=== PATIENT | male | born 1990 | race Caucasian/White ===

== ENCOUNTER 2017-08-25 18:38 | Emergency (ER) | payer MEDICAID, OTHER ==
[2017-08-25 19:22] VITALS: BP 156/101; PULSE 88; RESP 16; TEMP 98.1; O2SAT 97
[2017-08-25] MEDS ORDERED: TDAP ADULT 0.5 ML INJ (BOOSTRIX) IM ONE (20:04)
--- NOTE | 2017-08-25 20:38 | EDPHY ---
H & P Stated Complaint: R hand dog bite at 1740 Time Seen by Provider: 08/25/17 20:32 HPI/ROS: CHIEF COMPLAINT: Dog bite HISTORY OF PRESENT ILLNESS: The patient is a 27-year-old man comes to the emergency department with his mom complaining of a dog bite to his right hand. He has small abrasions to the right index finger in 3 places. No obvious puncture wounds. No torn flashing no visible joint or tendon involvement. Normal range of motion and sensation. He did not think that it broke the skin until about 5 minutes later when he looks at his hand. REVIEW OF SYSTEMS: Constitutional: denies: chills, fever, recent illness, recent injury EENTM: denies: blurred vision, double vision, nose congestion Respiratory: denies: cough, shortness of breath Cardiac: denies: chest pain, irregular heart rate, lightheadedness, palpitations Gastrointestinal/Abdominal: denies: abdominal pain, diarrhea, nausea, vomiting, blood streaked stools Genitourinary: denies: dysuria, frequency, hematuria, pain Musculoskeletal: denies: joint pain, muscle pain Skin: See HPI Neurological: denies: headache, numbness, paresthesia, tingling, dizziness, weakness Hematologic/Lymphatic: denies: blood clots, easy bleeding, easy bruising Immunologic/allergic: denies: HIV/AIDS, transplant EXAM: GENERAL: Well-appearing, well-nourished and in no acute distress. HEAD: Atraumatic, normocephalic. EYES: Pupils equal round and reactive to light, extraocular movements intact, sclera anicteric, conjunctiva are normal. ENT: TMs normal, nares patent, oropharynx clear without exudates. Moist mucous membranes. NECK: Normal range of motion, supple without lymphadenopathy or JVD. LUNGS: Breath sounds clear to auscultation bilaterally and equal. No wheezes rales or rhonchi. HEART: Regular rate and rhythm without murmurs, rubs or gallops. ABDOMEN: Soft, nontender, normoactive bowel sounds. No guarding, no rebound. No masses appreciated. BACK: No CVA tenderness, no spinal tenderness, step-offs or deformities EXTREMITIES: Normal range of motion, no pitting or edema. No clubbing or cyanosis. NEUROLOGICAL: Cranial nerves II through XII grossly intact. Normal speech, normal gait. 03/12 strength, normal movement in all extremities, normal sensation PSYCH: Normal mood, normal affect. SKIN: Dog bites as described above. No suturable laceration no visible joint or tendon injury. Source: Patient Exam Limitations: No limitations - Personal History Current Tetanus/Diphtheria Vaccine: No Current Tetanus Diphtheria and Acellular Pertussis (TDAP): No - Medical/Surgical History Hx Asthma: Yes Hx Chronic Respiratory Disease: No Hx Diabetes: No Hx Cardiac Disease: No Hx Renal Disease: No Hx Cirrhosis: No Hx Alcoholism: No Hx HIV/AIDS: No Hx Splenectomy or Spleen Trauma: No Other PMH: celiac, lymes disease, - Family History Significant Family History: No pertinent family hx - Social History Smoking Status: Current every day smoker Alcohol Use: Sober Drug Use: None Constitutional: Initial Vital Signs Temperature (C) 36.7 C 08/25/17 19:19 Heart Rate 88 08/25/17 19:19 Respiratory Rate 16 08/25/17 19:19 Blood Pressure 156/101 H 08/25/17 19:19 O2 Sat (%) 97 08/25/17 19:19 O2 Delivery Mode Room Air Allergies/Adverse Reactions: No Known Allergies Allergy (Unverified 08/25/17 19:22) Home Medications: Medication Instructions Recorded Amoxicillin/Clavulanate Pot 875 mg PO BID #14 tab 08/25/17 [Augmentin 875Mg] FLUoxetine 08/25/17 LAMOTRIGINE 08/25/17 Valium 08/25/17 Medical Decision Making ED Course/Re-evaluation: I initially recommended Augmentin however the patient and mom were concerned about his micro biob profile because he has chronic Lyme disease. Eventually we agreed to give him a prescription but he will hold off taking it for 24 hours to see if any symptoms of infection develop. These are not deep wounds. He is aggressively irrigated the wounds himself and cleaned them with alcohol. We will wrapped them with antibiotics and sterile dressings. Patient and mom are happy with this plan and declines further workup or testing at this time. He did receive a tetanus shot and police have been notified. Differential Diagnosis: Partial list of the Differential diagnosis considered include but were not limited to; dog bite laceration, puncture wound and although unlikely based on the history and physical exam, I also considered tendon injury, foreign body, and fracture, joint infection. I discussed these differential diagnoses and the plan with the patient as well as the usual and expected course. The patient understands that the diagnosis is provisional and that in medicine we are not always correct and that further workup is often warranted. Usual and customary warnings were given. All of the patient's questions were answered. The patient was instructed to return to the emergency department should the symptoms at all worsen or return, otherwise to followup with the physician as we discussed. - Data Points Medications Given: Discontinued Medications Diphtheria/Tetanus/Acell Pertussis (Boostrix) 0.5 ml IM .ONCE ONE Stop: 08/25/17 20:05 Last Admin: 08/25/17 20:08 Dose: 0.5 ml Departure - Departure Disposition: Home, Routine, Self-Care Clinical Impression: Dog bite of right hand Qualifiers: Encounter type: initial encounter Qualified Code(s): S61.451A - Open bite of right hand, initial encounter; W54.0XXA - Bitten by dog, initial encounter; W54.0XXA - Bitten by dog, initial encounter Condition: Fair Instructions: Animal Bite (ED) Referrals: NONE *PRIMARY CARE P,. [Primary Care Provider] - As per Instructions Prescriptions: Amoxicillin/Clavulanate Pot [Augmentin 875Mg] 875 mg PO BID #14 tab
== END 2017-08-25 20:50 | disposition home or self-care (01) ==
DX: S61.451A Open bite of right hand, initial encounter (principal); J45.909 Unspecified asthma, uncomplicated; F17.200 Nicotine dependence, unspecified, uncomplicated; Z23 Encounter for immunization; W54.0XXA Bitten by dog, initial encounter

== ENCOUNTER 2017-11-30 09:28 | Emergency (ER) | payer MEDICAID ==
[2017-11-30 09:35] VITALS: RESP 17; TEMP 98.1
--- NOTE | 2017-11-30 10:07 | EDPHY ---
H & P Time Seen by Provider: 11/30/17 09:50 HPI/ROS: CHIEF COMPLAINT: Right elbow injury, head injury HISTORY OF PRESENT ILLNESS: 27-year-old male presents to the emergency department after he slipped on the ice approximately 1 hr prior to arrival injuring his right elbow and his head. He states that he was wearing a hat. He hit the back of his head. He did not lose consciousness. He feels slightly nauseous. He has mild diffuse headache, however more so pain in the back of his head where he hit. He has some numbness in his right small finger. He has pain in his right elbow which is especially worse with movement. No pain in his right wrist or shoulder. No symptoms in the left upper extremity or in his lower extremities bilaterally. No abdominal pain. No vomiting. No visual changes. REVIEW OF SYSTEMS: Constitutional: No fever, no chills. Eyes: No double or blurry vision. ENT: No sore throat. Respiratory: No cough, no shortness of breath. Cardiac: No chest pain. Gastrointestinal: Nausea. No abdominal pain, vomiting or diarrhea. Genitourinary: No dysuria. Musculoskeletal: No neck or back pain. Skin: No rashes. Neurological: headache. Past Medical/Surgical History: Negative Social History: Single, auto body painter Smoking Status: Current every day smoker Physical Exam: General Appearance: Alert, no distress. Mentating normally and answering questions appropriately. No visible signs of trauma to his head. Eyes: Pupils equal and round. Extraocular motions are all intact. ENT: Mouth: Mucous membranes moist. No hemotympanum. No dental injury or malocclusion. Respiratory: No wheezing, rhonchi, or rales, lungs are clear to auscultation. Cardiovascular: Regular rate and rhythm. Gastrointestinal: Abdomen is soft and nontender, no masses, no rebound or guarding, bowel sounds normal. Neurological: Alert and oriented x 3, cranial nerves II through XII grossly intact Skin: Warm and dry, no rashes. Superficial abrasion noted to the right 4th finger. No suturable lacerations noted. Musculoskeletal: Mild diffuse tenderness with palpation along cervical spine. Nontender to palpate along thoracic or lumbar spine. Extremities: Reproducible pain with palpation to the right elbow. No palpable crepitus or other bony abnormality. Limited extension and limited flexion as well as limited supination secondary to pain. Full flexion extension of his right wrist and hand. Full range of motion of the left upper extremity and lower extremities bilaterally. Straight leg raise negative bilaterally. Psychiatric: Patient is oriented X 3, there is no agitation. Constitutional: Initial Vital Signs Temperature (C) 36.7 C 11/30/17 09:32 Heart Rate 94 11/30/17 09:32 Respiratory Rate 17 11/30/17 09:32 Blood Pressure 120/80 11/30/17 09:32 O2 Sat (%) 93 11/30/17 09:32 O2 Delivery Mode Room Air Allergies/Adverse Reactions: No Known Allergies Allergy (Unverified 08/25/17 19:22) Home Medications: Medication Instructions Recorded FLUoxetine 08/25/17 LAMOTRIGINE 08/25/17 Valium 08/25/17 CLONAZEPAM 11/30/17 OXcarbazepine 11/30/17 QUEtiapine FUMARATE 11/30/17 Medical Decision Making - Diagnostics Imaging Results: Imaging Impressions Elbow X-Ray 11/30/17 09:45 Impression: Normal. No acute fracture or effusion. Cervical Spine X-Ray 11/30/17 10:08 Impression: Negative 2 view cervical spine. Imaging: I viewed and interpreted images myself ED Course/Re-evaluation: 27-year-old male presents to the emergency department with right elbow injury. X -rays reveal no fractures. He requested sling for comfort and support. The patient did hit his head. He did not however lose consciousness. He complains of pain in the back of his head where he hit. He has normal neurologic examination. I discussed the pros and cons of CT imaging of his brain including radiation exposure and the patient as well as father at bedside declined CT scan. I think the patient has the capacity to make this decision. I think this is reasonable. I did encourage them however to return to the emergency department if he developed worsening headache, vomiting, altered mental status, or if he felt worse in any way. I also discouraged him from doing any activity that might put him at risk for another head injury for at least 1 week. Differential Diagnosis: Head injury including but not limited to concussion, skull fracture, intraparenchymal contusion, subarachnoid, subdural and epidural hematoma. Elbow pain including but not limited to fracture, dislocation, contusion, sprain Departure - Departure Disposition: Home, Routine, Self-Care Clinical Impression: Contusion of right elbow Qualifiers: Encounter type: initial encounter Qualified Code(s): S50.01XA - Contusion of right elbow, initial encounter Head injury Qualifiers: Encounter type: initial encounter Qualified Code(s): S09.90XA - Unspecified injury of head, initial encounter Condition: Good Instructions: Head Injury (ED), Contusion in Adults (ED) Additional Instructions: Return to the emergency department if you developed worsening headache, vomiting , altered mental status, or any other concerns. Avoid any activity that might put you at risk for another head injury for at least 1 week. Activity as tolerated. Ibuprofen 600 mg every 8 hr as needed for pain. Sling for comfort and support. Referrals: CRUZITO OBRIEN [Other] - As per Instructions Greg Hinojosa MD [Medical Doctor] - 5-7 days, if not improved (Orthopedic surgeon on-call)
[2017-11-30 11:50] VITALS: BP 122/84; PULSE 81; O2SAT 94
== END 2017-11-30 11:43 | disposition home or self-care (01) ==
DX: S09.90XA Unspecified injury of head, initial encounter (principal); S50.01XA Contusion of right elbow, initial encounter; F17.200 Nicotine dependence, unspecified, uncomplicated; W01.198A Fall on same level from slipping, tripping and stumbling with subsequent striking against other object, initial encounter

== ENCOUNTER 2018-03-21 15:15 | Emergency (ER) | payer MEDICAID ==
--- NOTE | 2018-03-21 15:37 | EDPHY ---
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 He was wearing shoes and went through the sole of the shoe. Today it is painful and he noticed a 1-2 inch red streak on the medial side of the instep. REVIEW OF SYSTEMS: No weakness or numbness distally, no foreign body sensation , no fever or chills. PAST MEDICAL HISTORY: Last tetanus is 2 months ago. Anxiety depression and Lyme disease Social history: Recent alcohol General Appearance: Alert and conversant, cooperative. 2 mm puncture wound on the sole of the left foot the instep with 3 cm x 1 mm streak medially. Normal motor sensory and dorsalis pedis pulse. No foreign body palpated and no pus or drainage from the wound. Emergency Department course/MDM: X-ray and oral antibiotics. Does not look septic or toxic. 1555: X-ray shows no foreign body or gas in the soft tissue. Plan for EKG and then oral ciprofloxacin if QT is normal, with close follow-up [facility]. Bactrim for MRSA coverage. 1607: Discussed with Dmitry from ID, will follow-up this week. Treat with quinolone is this is the only oral agent available for Pseudomonas. Discussed with Raul at 4:12 p.m. Will get a follow-up EKG in 48 hr. Smoking Status: Current every day smoker Constitutional: Initial Vital Signs Temperature (C) 36.8 C 03/21/18 15:24 Heart Rate 102 H 03/21/18 15:24 Respiratory Rate 16 03/21/18 15:24 Blood Pressure 100/71 03/21/18 15:24 O2 Sat (%) 93 03/21/18 15:24 O2 Delivery Mode Room Air Allergies/Adverse Reactions: No Known Allergies Allergy (Verified 03/21/18 15:23) Home Medications: Medication Instructions Recorded FLUoxetine 08/25/17 LAMOTRIGINE 08/25/17 Valium 08/25/17 CLONAZEPAM 11/30/17 OXcarbazepine 11/30/17 QUEtiapine FUMARATE 11/30/17 Ciprofloxacin [Cipro] 500 mg PO BID #14 tab 03/21/18 Sulfamethox/Tmp 800/160 mg 1 tab PO BID@1000,2200 #20 tab 03/21/18 [Bactrim Ds] MDM/Departure - MDM Diagnostics: 12-lead EKG interpreted by me; official reading is in trace master. My interpretation is sinus rhythm rate 98 with QT 352 Imaging Results: Imaging Impressions Foot X-Ray 03/21/18 15:36 Impression: Nothing acute identified. If there is concern for osteomyelitis recommend follow-up x-ray in 7-10 days. - Depart Disposition: Home, Routine, Self-Care Clinical Impression: Cellulitis Qualifiers: Site of cellulitis: extremity Site of cellulitis of extremity: lower extremity Laterality: left Qualified Code(s): L03.116 - Cellulitis of left lower limb Condition: Good Instructions: Ciprofloxacin (By mouth), Sulfamethoxazole/Trimethoprim (By mouth ), Cellulitis (ED) Prescriptions: Ciprofloxacin [Cipro] 500 mg PO BID #14 tab Sulfamethox/Tmp 800/160 mg [Bactrim Ds] 1 tab PO BID@1000,2200 #20 tab Referrals: Mariaa Jaramillo DPM [Doctor of Podiatric Medicine] - As per Instructions Yobani Carter MD [Medical Doctor] - 03/23/18 (See cardiology in 2 days for repeat EKG) Mehran Andres MD [Medical Doctor] - 03/23/18 (followup in 2 days for wound check)
--- NOTE | 2018-03-21 16:07 | CPEKG ---
Heart Rate: 98 RR Interval: 612 P-R Interval: 172 QRSD Interval: 84 QT Interval: 352 QTC Interval: 450 P [place]: 85 QRS [place]: 57 T Wave [place]: 74 EKG Severity - NORMAL ECG - EKG Impression: SINUS RHYTHM Electronically Signed By: Chalino Childs 21-Mar-2018 16:28:08
[2018-03-21 16:39] VITALS: BP 120/67
== END 2018-03-21 16:39 | disposition home or self-care (01) ==
DX: L03.116 Cellulitis of left lower limb (principal); F17.200 Nicotine dependence, unspecified, uncomplicated

== ENCOUNTER → 2018-03-25 | Outpatient (CLI) | payer MEDICAID ==
--- NOTE | 2018-03-25 14:32 | CPEKG ---
Heart Rate: 93 RR Interval: 645 P-R Interval: 160 QRSD Interval: 88 QT Interval: 356 QTC Interval: 443 P [place]: 85 QRS [place]: 13 T Wave [place]: 80 EKG Severity - NORMAL ECG - EKG Impression: SINUS RHYTHM Electronically Signed By: Mani Chaparro 26-Mar-2018 09:28:50
== END ==
LOC: FCP 14:17
PROVIDERS: ATTEND Emergency Medicine
DX: L03.116 Cellulitis of left lower limb (principal)